=== PATIENT | female | born 1985 | race Caucasian/White ===

== ENCOUNTER 2017-04-29 11:40 | Emergency (ER) | payer SELFPAY ==
[2017-04-29] MEDS ORDERED: Sodium Chloride 0.9% 1,000 ML PRIMARY IV ONE ×3 (12:05→14:51)
[2017-04-29] MEDS ORDERED: NORMAL SALINE 10 ML SYRINGE FLUSH IVP PRN ×2 (12:05→14:51)
--- NOTE | 2017-04-29 12:05 | PDOC ---
Gen Adult / Medical Screen HPI - General Chief Complaint: General Medical Stated Complaint: body pains Date Seen by Provider: 04/29/17 Time Seen by Provider: 12:04 Source: POSITIVE: Patient - History of Present Illness Initial Comments: Ms. Bah is a 31-year-old woman coming to us today with a sickle cell pain crisis. She is from out of town traveling on her way back home from [place]. She normally lives at a lower altitude, which is likely a contributing factor. She started having pain typical of her normal sickle cell pain in her arms and legs yesterday. She is compliant with her home Percocet home Dilaudid and home hydroxyurea. She denies any fevers, shortness of breath, cough, headache, or neck stiffness. She has no nausea no vomiting. She has noticed that she has mild increasing bruising, which she states is typical for her when she has her sickle pain crises. She has had acute chest before, and states that this does not feel like that to her. - Patient Home Medications Home Medications: Home Medications Hydromorphone HCl [Dilaudid] 4 mg PO PRN PRN 04/29/17 Hydroxyurea 500 mg PO DAILY 04/29/17 oxyCODONE/APAP 10/325 Tab [Percocet 10/325 Tab] 1 each PO Q4H 04/29/17 - Patient Allergies Allergies/Adverse Reactions: Allergies Allergy/AdvReac Type Severity Reaction Status Date / Time No Known Allergies Allergy Verified 04/29/17 12:05 Past Medical History - heen HEENT History: Denies History Cardiovascular History: Denies History Respiratory History: Denies History Gastrointestinal History: Denies History Genitourinary History: Denies History Endocrine History: Denies History Musculoskeletal History: Denies History Neurological History: Denies History Blood Disorders: Sickle Cell Anemia Psychiatric History: Denies History Past Medical History Reviewed: Reviewed - No Changes ROS - Limitations ROS Limitations: No Limitations Constitution: REPORTS: Denies Symptoms Cardiovascular: REPORTS: Denies Cardiac Symptoms Respiratory: REPORTS: Denies Resp Symptoms Neurological: REPORTS: Denies Neuro Symptoms Gastrointestinal: REPORTS: Denies GI Symptoms Endocrine: REPORTS: Fatigue Musculoskeletal: REPORTS: Joint Pain, Muscle Aches Genitourinary: REPORTS: Denies Symptoms Eyes: REPORTS: Denies Symptoms ENT: REPORTS: Denies Symptoms Skin: REPORTS: Denies Skin Symptoms Lympathic: REPORTS: Excessive Bruising Psychiatric: POSITIVE: Denies Psych Symptoms Gen Adult/Medical Screen Exam - General Appearance General Appearance: POSITIVE: Alert, Cooperative, No Acute Distress, No Evidence of Trauma - HEENT HEENT: POSITIVE: Head Inspection Nml, Eyes Inspection Nml, Ears Inspection Nml, Nose Inspection Nml, Oral/Dental Inspect. Nml, Pharynx Inspect. Nml, PERRL, EOMI - Pupils Pupil Size: 2 mm: Bilateral - Neck Neck: POSITIVE: Normal Inspection - Respiratory Respiratory: POSITIVE: No Respiratory Distress, Breath Sounds Normal - Cardiovascular Cardiovascular: POSITIVE: Regular Rate & Rhythm Peripheral Pulses: Radial (R): 2+, Radial (L): 2+ - Abdomen Abdomen: Soft: (All Quadrants), Normal Bowel Sounds: (All Quadrants), Denies Tenderness: (All Quadrants), No Splenomegaly: (All Quadrants) - Neurological / Psychological Mental Status: POSITIVE: Mood Normal, Affect Normal Orientation: POSITIVE: Oriented x 3 - Skin Skin: POSITIVE: Normal Color, No Rash - Extremities Extremity: Non-Tender: (All Extremities), Normal ROM: (All Extremities), Normal Inspection: (All Extremities) Gen Adlt/Medical Scrn Progress - Results Reviewed by me Lab Results Reviewed: Yes (normal WBC and reticulocytes) Lab Results:: Laboratory Results 04/29/17 Range/Units 12:36 WBC 5.95 (4.8-10.8) 10^3/uL RBC 4.54 (4.20-5.40) 10^6/uL Hgb 10.0 L (12.0-16.0) g/dL Hct 32.3 L (37.0-47.0) % MCV 71.1 L (81-99) FL MCH 22.0 L (27-31) PG MCHC 31.0 L (33-37) g/dL RDW Std Deviation 55.0 H (39-50) fL RDW Coeff of Tanisha 21.6 H (11.5-14.5) % Plt Count 389 H (140-350) 10*3/uL MPV 8.7 (7.4-12.2) FL Immature Gran % (Auto) 0.2 (0-5) % Neut % (Auto) 58.0 (50-80) % Lymph % (Auto) 29.7 (10-50) % [place] % (Auto) 9.9 (5-15) % Eos % (Auto) 1.5 (0-8) % Baso % (Auto) 0.7 (0-1) % Immature Gran # (Auto) 0.01 10*3/UL Neut # (Auto) 3.45 10*3/UL Lymph # (Auto) 1.77 10*3/uL [place] # (Auto) 0.59 (0.3-0.8) 10*3/UL Eos # (Auto) 0.09 10*3/UL Baso # (Auto) 0.04 10*3/UL WBC Morphology Comment Normal morphology (NORM) Plt Morphology Comment Normal morphology (NORM) RBC Morph Comment Normal morphology (NORM) Retic Count 0.0624 (0.0380-0.1130) 10(6)/uL Percent Retic 1.39 (0.77-2.36) % Sodium 139 (135-145) meq/L Potassium 3.9 (3.8-5.2) meq/L Chloride 108 (98-112) meq/L Carbon Dioxide 22 L (23-33) meq/L Anion Gap 9 (5-20) BUN 11 (7-22) mg/dL Creatinine 0.6 (0.50-1.20) mg/dL Estimated GFR > 60 (>60 ml/min/1.73m(2)) BUN/Creatinine Ratio 18.33 (6-20) Glucose 99 (78-110) mg/dL Calculated Osmolality 286.0 (267-292) mOsm/kg Calcium 8.1 L (8.7-10.7) mg/dL Total Bilirubin 0.2 L (0.3-1.2) mg/dL AST 15 (8-39) IU/L ALT 27 (9-52) IU/L Alkaline Phosphatase 50 (38-126) IU/L Total Protein 6.9 (6.1-8.0) g/dL Albumin 3.8 (3.5-4.8) g/dL Globulin 3.1 (2.50-4.10) g/dL Albumin/Globulin Ratio 1.20 L (1.3-2.0) mg/g Serum HCG, Qual Negative - Patient's Progress MDM / ED Course: Ms. gomez is a 31-year-old woman coming in today with an acute sickle cell pain crisis. She has no evidence of acute chest, she has no fevers and blood work is reassuring. We gave her 3 rounds of IV pain medicine 2 mg Dilaudid followed by 4 mg followed by 4 mg. After each pain medication and menstruation she was reassessed and her pain slowly improved. She also got a liter of saline with each Dilaudid bolus as well as an initial 50 mg dose of IV Benadryl. She was able to eat both solid and liquid food with no problem and her pain was controlled at the end of this encounter and she states that she could control her symptoms with oral medicines going forward. He recommended that she return back home to [place] and follow up with her primary providers there. She verbalized understanding Patient Care Time - Estimated PCT Patient Care Time (In Minutes): 30 Vital Signs - Recent Vital Signs Vital Signs: Vital Signs (Last 8 hours) Temp Pulse Pulse Resp BP Pulse Ox 04/29/17 15:49 62 12 116/67 98 04/29/17 15:25 66 12 109/66 100 04/29/17 15:03 82 16 04/29/17 13:30 66 12 139/101 97 04/29/17 11:50 97.3 F 69 14 121/83 98 - VS Reviewed Vital Signs Reviewed: Yes Discharge Clinical Impression: Sickle cell anemia with crisis Discharge Disposition: Discharged to Home Condition: Fair Patient Instructions Given at Discharge: Sickle Cell Crisis (ED)
[2017-04-29] MEDS ORDERED: HYDROmorphone 2 MG/1 ML IVP ONE ×3 (12:06→14:49)
[2017-04-29] MEDS ORDERED: Sodium Chloride 0.9% 1,000 ML ONE (12:17)
[2017-04-29] MEDS ORDERED: HYDROmorphone 2 MG/1 ML ONE (12:17)
[2017-04-29] MEDS ORDERED: diphenhydrAMINE 50 MG/1 ML VIAL IVP ONE (12:30)
[2017-04-29 12:42] LABS: BASOPHILS # (AUTO) 0.04 10*3/UL; BASOPHILS % (AUTO) 0.7 % (0-1); EOSINOPHILS # (AUTO) 0.09 10*3/UL; EOSINOPHILS % (AUTO) 1.5 % (0-8); HEMATOCRIT 32.3 % (37.0-47.0); LYMPHOCYTES # (AUTO) 1.77 10*3/uL; MEAN CORPUSCULAR VOLUME 71.1 FL (81-99); MEAN PLATELET VOLUME 8.7 FL (7.4-12.2); MONOCYTES # (AUTO) 0.59 10*3/UL (0.3-0.8); MONOCYTES % (AUTO) 9.9 % (5-15); NEUTROPHILS # (AUTO) 3.45 10*3/UL; RED BLOOD COUNT 4.54 10^6/uL (4.20-5.40)
[2017-04-29 12:44] LABS: PLATELET MORPHOLOGY COMMENT NORMAL MORPHOLOGY (NORM); RBC MORPHOLOGY COMMENT NORMAL MORPHOLOGY (NORM); WBC MORPHOLOGY COMMENT NORMAL MORPHOLOGY (NORM)
[2017-04-29 12:50] LABS: BLOOD UREA NITROGEN 11 mg/dL (7-22); BUN/CREATININE RATIO 18.33 (6-20); CALCIUM 8.1 mg/dL (8.7-10.7); EST GLOMERULAR FILTRATION > 60 (>60 ml/min/1.73m(2)); SERUM ALBUMIN 3.8 g/dL (3.5-4.8)
[2017-04-29 13:25] VITALS: TEMP 97.3
[2017-04-29 15:36] VITALS: RESP 12
== END 2017-04-29 17:15 | disposition home or self-care (01) ==
LOC: ER 11:40
DX: D57.00 Hb-SS disease with crisis, unspecified (principal); M79.602 Pain in left arm; M79.601 Pain in right arm; M79.605 Pain in left leg; M79.604 Pain in right leg
CPT/HCPCS: 36415; 80053; 84703; 85025; 85045; 96361; 96374; 96375; 96376; 99283 ×2; J1200; J1170; J7030

== ENCOUNTER 2017-04-30 15:50 | Observation (INO) | payer SELFPAY ==
[2017-04-30] MEDS ORDERED: Sodium Chloride 0.9% 1,000 ML PRIMARY IV ONE ×2 (16:32→18:25)
[2017-04-30] MEDS ORDERED: NORMAL SALINE 10 ML SYRINGE FLUSH IVP PRN (16:32)
[2017-04-30] MEDS ORDERED: HYDROmorphone 2 MG/1 ML IVP ONE (16:36)
[2017-04-30 16:42] LABS: HEMATOCRIT 32.3 % (37.0-47.0); HEMOGLOBIN 10.4 g/dL (12.0-16.0); MEAN CORPUSCULAR HEMOGLOBIN 22.5 PG (27-31); MEAN CORPUSCULAR HGB CONC 32.2 g/dL (33-37); MEAN CORPUSCULAR VOLUME 69.9 FL (81-99); MEAN PLATELET VOLUME 8.7 FL (7.4-12.2); RED BLOOD COUNT 4.62 10^6/uL (4.20-5.40)
[2017-04-30 16:54] LABS: BLOOD UREA NITROGEN 6 mg/dL (7-22); C-REACTIVE PROTEIN 1.8 mg/dL (0.0-0.9); CALCIUM 8.2 mg/dL (8.7-10.7); EST GLOMERULAR FILTRATION > 60 (>60 ml/min/1.73m(2)); SERUM ALBUMIN 3.5 g/dL (3.5-4.8)
[2017-04-30 17:06] LABS: PLATELET MORPHOLOGY COMMENT NORMAL MORPHOLOGY (NORM); RBC MORPHOLOGY COMMENT NORMAL MORPHOLOGY (NORM); WBC MORPHOLOGY COMMENT NORMAL MORPHOLOGY (NORM)
[2017-04-30 17:07] LABS: BAND NEUTROPHILS % 0 % (0-10); BASOPHILS % (MANUAL) 1 % (0-1); EOSINOPHILS % (MANUAL) 1 % (0-8); LYMPHOCYTES % (MANUAL) 38 % (10-50); METAMYELOCYTES % 0 %; MONOCYTES % (MANUAL) 4 % (0-12); MYELOCYTES % 0 %; NEUTROPHILS % (MANUAL) 56 % (50-80); PROMYELOCYTES % 0 %
[2017-04-30] MEDS ORDERED: diphenhydrAMINE 50 MG/1 ML VIAL IVP ONE (17:14)
--- NOTE | 2017-04-30 17:43 | DI ---
PA /LATERAL CHEST X-RAY, 04/30/2017 4:32 PM : Clinical History: Sickle cell anemia. Sickle cell pain crisis. Previous Exam: None at this facility. There is no acute soft tissue or bony abnormality. Heart size is normal. Lungs are clear. Mediastinal structures are normal. There are no pulmonary nodules. Reading: Normal chest x-ray.
[2017-04-30] MEDS ORDERED: HYDROmorphone 2 MG/1 ML IVP PRN ×3 (18:20→20:40)
[2017-04-30] MEDS ORDERED: LIDOCAINE W/ SODIUM BICARB 0.5 ML SYR SUBD PRN (18:25)
[2017-04-30] MEDS: diphenhydrAMINE 50 MG/1 ML VIAL IVP PRN (20:20)
[2017-04-30] MEDS: HYDROmorphone 2 MG/1 ML IVP PRN ×2 (20:46→23:13)
[2017-04-30] MEDS ORDERED: ENOXAPARIN SODIUM 40 MG/0.4 ML SYRINGE SUBCUT ONE (21:39)
--- NOTE | 2017-04-30 21:40 | PDOC ---
History and Physical - History of Present Illness History of Present Illness: Is a very nice 31-year-old female with past medical history significant for sickle cell disease. Was seen and the ER yesterday with sickle cell pain crisis. She resides in [place] but was in [place] for a family reunion and headed home. Most likely the altitude is contributing to her crisis she received the IV fluids in the dialogue did in the ER was better discharged today comes back with increased sickle cell pain and was admitted for pain control. Usually these crisis last 3-4 days she usually uses dye lauded every 2 hours plus Benadryl and IV fluids she has been dealing with this since . Denies chest pain nausea or vomiting and feels a little bit better tonight Past Medical History Medical History: Sickle cell crisis Tobacco Use: Former Smoker Do you dip or chew tobacco: No Substance Use Type: None Medication / Allergies Home Medications: Home Medications Medication Instructions Recorded Confirmed Type Hydromorphone HCl [Dilaudid] 4 mg PO PRN PRN 04/29/17 04/30/17 History Hydroxyurea 500 mg PO DAILY 04/29/17 04/30/17 History oxyCODONE/APAP 10/325 Tab 1 each PO Q4H 04/29/17 04/30/17 History [Percocet 10/325 Tab] Allergies/Adverse Reactions: Allergies Allergy/AdvReac Type Severity Reaction Status Date / Time No Known Allergies Allergy Verified 04/30/17 16:11 Review of Systems - Respiratory Respiratory: DENIES: Negative System Review, Cough, Sputum, Dyspnea At Rest, Dyspnea with Exertion, Pleuritic Pain, Hemoptysis, Wheezing, Other, See HPI - Cardiovascular Cardiovascular: DENIES: Negative System Review, Chest Pain, Edema, Syncope, Palpitations, Orthopnea, Paroxysmal Nocturnal Dyspnea, Other, See HPI Exam - Vitals Vital Signs: Vital Signs Temperature 97.2 F Temperature Source Temporal Artery Scan Pulse Rate [Pulse Oximeter 61 Left] Respiratory Rate 22 Blood Pressure [Right Arm] 133/58 Pulse Ox 99 Oxygen Flow Rate 2 Oxygen Delivery Method Nasal Cannula Height 5 ft 5 in Weight 146.147 kg - General General Appearance: POSITIVE: No Acute Distress, Cooperative - Head Head Exam: POSITIVE: Normal Inspection, Normocephalic, Atraumatic - Respiratory Respiratory Exam: POSITIVE: Clear to Auscultation - Bilaterally, Breathing Non Labored, Normal To Percussion, Normal to Percussion and Palpation - Cardiovascular Cardiovascular Exam: POSITIVE: RRR, No Murmur, No Clicks, No Gallops - GI/Abdominal GI/Abdominal Exam: POSITIVE: Non Tender, Non Distended, Soft - Extremities Extremities Exam: POSITIVE: No Clubbing Present, No Edema Present Results - Labs CBC and BMP: 04/30/17 16:30 04/30/17 16:30 Assessment and Plan - Patient Problems (1) Sickle cell anemia with crisis Current Visit: No Status: Acute Comment: IV fluids, with 20 of K dye lauded 4 mg every 2 hours as IV Benadryl this seems to help her quite a bit she is comfortable at present time (2) Hypokalemia Current Visit: Yes Status: Acute Comment: Replace with fluids
--- NOTE | 2017-04-30 22:20 | PDOC ---
General Adult HPI - General Chief Complaint: General Medical Stated Complaint: body pain Date Seen by Provider: 04/30/17 Time Seen by Provider: 15:08 Source: POSITIVE: Patient, Old records Exam Limitations: POSITIVE: No limitations Nurse's Notes Reviewed & Considered: Yes - History of Present Illness Initial Comment: The patient is a 31-year-old female. She states that she lives in [place] and is returning from [place] to her home in [place]. She states she has a history of sickle cell anemia and has episodes of "acute painful episodes "due to her sickle cell disease. She states that this condition is managed by pain specialist in [place] and that she takes Dilaudid and Percocet on a as necessary basis. Patient states she was diagnosed with sickle cell disease at age 5. She states that she gets fairly frequent episodes of acute pain and has to be hospitalized periodically. Patient states that she has undergone a "partial splenectomy ". Patient denies any fevers or chills. No chest pain or dyspnea. No GI or symptoms. She states that she does have some pain to the left lower leg over the left calf. 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 Patient states that she has required blood transfusions in the past, most recently this past October. She was seen in the emergency room yesterday with pain mainly to her extremities and back and she was treated with IV hydration and narcotic analgesia. She returns today complaining of no relief. Have you received a tetanus shot in the past 10 years?: No Body Location Affected: REPORTS: Upper Extremity (L), Upper Extremity (R), Lower Extremity (L), Lower Extremity (R), Back Timing: REPORTS: Constant, Gradual Duration: >24 hours (Approximately 36 hours) Severity: Moderate Quality: REPORTS: Aching, "Pain" Context: REPORTS: Other (As above) Modifying Factors: improves with: Nothing Similar Symptoms Previously: Yes (as above) Recent Care Received: REPORTS: Recently Seen, Treated by MD (Seen and treated in ER yesterday; see ER notes from that visit.) Any Prior Injuries Related to Current Complaint?: No - Patient Home Medications Home Medications: Home Medications Hydromorphone HCl [Dilaudid] 4 mg PO PRN PRN 04/29/17 Hydroxyurea 500 mg PO DAILY 04/29/17 oxyCODONE/APAP 10/325 Tab [Percocet 10/325 Tab] 1 each PO Q4H 04/29/17 - Patient Allergies Allergies/Adverse Reactions: Allergies Allergy/AdvReac Type Severity Reaction Status Date / Time No Known Allergies Allergy Verified 04/30/17 16:11 Past Medical History - heen HEENT History: Denies History Cardiovascular History: Denies History Respiratory History: Denies History Gastrointestinal History: Denies History Genitourinary History: Denies History Additional Genitourinary History: spleen surgery with part. removal. 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, dnc Psychiatric History: Denies History History of Sexually Transmitted Diseases: No Female Reproductive History: Hysterectomy LMP: none- normal for pt Cancer History: Denies History In Past Year Been Physically Harmed or Verbally Threatened: No History of MDRO: No History of Other Communicable Diseases: No Tobacco Use: Former Smoker Alcohol Use: None Substance Use Type: None Previous Surgical History: Yes Type / Date of Surgery: spleen, hysterectomy Anesthesia Reactions: No Malignant Hyperthermia: No Family History of Malignant Hyperthermia: No Significant Family History: No pertinent family hx Past Medical History Reviewed: Reviewed - No Changes ROS - Limitations ROS Limitations: No Limitations Constitution: REPORTS: Other (Myalgia) Cardiovascular: REPORTS: Denies Cardiac Symptoms Respiratory: REPORTS: Denies Resp Symptoms Neurological: REPORTS: Denies Neuro Symptoms Gastrointestinal: REPORTS: Denies GI Symptoms Endocrine: REPORTS: Denies Symptoms Musculoskeletal: REPORTS: Back Pain, Muscle Aches Genitourinary: REPORTS: Denies Symptoms Eyes: REPORTS: Denies Symptoms ENT: REPORTS: Denies Symptoms Skin: REPORTS: Denies Skin Symptoms Lympathic: REPORTS: Denies Lympathic Symptoms Immunologic: POSITIVE: Denies Symptoms Psychiatric: POSITIVE: Denies Psych Symptoms General Adult Exam - General Appearance General Appearance: POSITIVE: Alert, Cooperative, No Acute Distress, No Evidence of Trauma - HEENT HEENT: POSITIVE: Head Inspection Nml, Eyes Inspection Nml, Ears Inspection Nml, Nose Inspection Nml, Oral/Dental Inspect. Nml, Pharynx Inspect. Nml, PERRL, EOMI - Pupils Pupil Size: 3 mm: Bilateral (PERRLA) - Neck Neck: POSITIVE: Normal Inspection, Thyroid Normal - Respiratory Respiratory: POSITIVE: No Respiratory Distress, Breath Sounds Normal, Chest Non- Tender - Cardiovascular Cardiovascular: POSITIVE: Regular Rate & Rhythm, No Murmur, No Gallop, PMI Normal Peripheral Pulses: Radial (R): 2+, Radial (L): 2+, Dorsalis-pedis (R): 2+, Dorsalis-pedis (L): 2+ - Abdomen Abdomen: Soft: (All Quadrants), Normal Bowel Sounds: (All Quadrants), Denies Tenderness: (All Quadrants), No Splenomegaly: (All Quadrants), No Hepatomegaly: (All Quadrants), No Guarding: (All Quadrants), No Rebound: (All Quadrants), No Palpable Pulse: (All Quadrants), No Palpabale Mass: (All Quadrants), No Distention: (All Quadrants), No Rigidity: (All Quadrants) - Back Back: POSITIVE: Normal Inspection - Skin Skin: POSITIVE: Normal Color, Warm, Dry, No Rash - Extremities Extremity: Non-Tender: (RUE), (LUE), (RLE), Normal ROM: (All Extremities), Normal Inspection: (All Extremities), Pelvis Stable: (All Extremities), Normal Tendon Exam: (All Extremities), Edema / Swelling: (LLE) Additional Extremities Details: Examination of extremities shows no joint effusion or swelling. No rubor or calor. She does express some mild discomfort on firm compression and palpation over the proximal aspect of the left lower leg. - Neurological / Psychological Neurological: POSITIVE: Oriented X3, joint yarner Normal As Tested, Motor Normal, Sensation Normal, 5, 6 General Adult Progress - Results Reviewed by me Xrays/CTs/US Reviewed by me: Yes Discussed with Radiologist: No Radiology Findings: Chest x-ray normal Lab Results Reviewed: Yes (hemoglobin 10.4; yesterday hemoglobin was 10.0) Lab Results:: Laboratory Results 04/30/17 Range/Units 16:30 WBC 4.76 L (4.8-10.8) 10^3/uL RBC 4.62 (4.20-5.40) 10^6/uL Hgb 10.4 L (12.0-16.0) g/dL Hct 32.3 L (37.0-47.0) % MCV 69.9 L (81-99) FL MCH 22.5 L (27-31) PG MCHC 32.2 L (33-37) g/dL RDW Std Deviation 52.9 H (39-50) fL RDW Coeff of Tanisha 21.2 H (11.5-14.5) % Plt Count 393 H (140-350) 10*3/uL MPV 8.7 (7.4-12.2) FL Neutrophils % (Manual) 56 (50-80) % Band Neutrophils % 0 (0-10) % Lymphocytes % (Manual) 38 (10-50) % Monocytes % (Manual) 4 (0-12) % Eosinophils % (Manual) 1 (0-8) % Basophils % (Manual) 1 (0-1) % Metamyelocytes % 0 % Myelocytes % 0 % Promyelocytes % 0 % Blast Cells 0 (0-1) % WBC Morphology Comment Normal morphology (NORM) Plt Morphology Comment Normal morphology (NORM) RBC Morph Comment Normal morphology (NORM) PT 11.0 (9.7-11.4) secs INR 1.07 (0.00-5.90) N/A D-Dimer 0.57 (0.00-0.59) mg/L Sodium 137 (135-145) meq/L Potassium 3.3 L (3.8-5.2) meq/L Chloride 107 (98-112) meq/L Carbon Dioxide 20 L (23-33) meq/L Anion Gap 10 (5-20) BUN 6 L (7-22) mg/dL Creatinine 0.6 (0.50-1.20) mg/dL Estimated GFR > 60 (>60 ml/min/1.73m(2)) BUN/Creatinine Ratio 10.00 (6-20) Glucose 131 H (78-110) mg/dL Calculated Osmolality 283.0 (267-292) mOsm/kg Calcium 8.2 L (8.7-10.7) mg/dL Total Bilirubin 0.3 (0.3-1.2) mg/dL AST 14 (8-39) IU/L ALT 26 (9-52) IU/L Alkaline Phosphatase 41 (38-126) IU/L Total Creatine Kinase 36 (30-136) IU/L C-Reactive Protein 1.8 H (0.0-0.9) mg/dL Total Protein 6.7 (6.1-8.0) g/dL Albumin 3.5 (3.5-4.8) g/dL Globulin 3.2 (2.50-4.10) g/dL Albumin/Globulin Ratio 1.00 L (1.3-2.0) mg/g - Patient's Progress Pain Medication Addressed: POSITIVE: Yes (Dilaudid, 2 mg IV given) School/Work Release Addressed: POSITIVE: Not Applicable Re-Examine Time: 17:45 Re-Examine Comment: Condition unchanged Status: POSITIVE: Unchanged, Re-Examined Antibiotics Given: No - Consult Consult (If Yes, Name of Consulting MD & Time Called): Yes (Dr. Rangel, hospitalist, [id number]) Consulting MD will see pt:: POSITIVE: [facility] [place] Counseled: POSITIVE: Patient, RE: Lab Results, RE: Radiology Results, RE: DX, RE : Need for F/U Patient Care Time - Estimated PCT Patient Care Time (In Minutes): 60 Vital Signs - Recent Vital Signs Vital Signs: Vital Signs (Last 8 hours) Temp Pulse Resp BP Pulse Ox 04/30/17 18:43 97.2 F 61 22 133/58 99 04/30/17 17:37 68 14 127/66 2 04/30/17 15:50 96.2 F L 98 14 150/90 98 - VS Reviewed Vital Signs Reviewed: Yes Discharge Clinical Impression: Sickle cell disease Discharge Disposition: Admit to Inpatient Condition: Fair Date Decision to Admit to Inpatient: 04/30/17 Time Decision to Admit to Inpatient: 17:30
[2017-05-01] MEDS: HYDROmorphone 2 MG/1 ML IVP PRN ×7 (01:16→18:25)
[2017-05-01 04:08] LABS: HEMOGLOBIN 9.8 g/dL (12.0-16.0)
[2017-05-01 04:10] LABS: HEMATOCRIT 30.3 % (37.0-47.0); MEAN CORPUSCULAR HEMOGLOBIN 23.1 PG (27-31); MEAN CORPUSCULAR HGB CONC 32.3 g/dL (33-37); MEAN CORPUSCULAR VOLUME 71.3 FL (81-99); MEAN PLATELET VOLUME 8.8 FL (7.4-12.2); RED BLOOD COUNT 4.25 10^6/uL (4.20-5.40)
[2017-05-01 04:28] LABS: BLOOD UREA NITROGEN 7 mg/dL (7-22); BUN/CREATININE RATIO 11.66 (6-20); CALCIUM 7.8 mg/dL (8.7-10.7); EST GLOMERULAR FILTRATION > 60 (>60 ml/min/1.73m(2)); SERUM ALBUMIN 3.2 g/dL (3.5-4.8)
[2017-05-01 04:51] LABS: BAND NEUTROPHILS % 0 % (0-10); BASOPHILS % (MANUAL) 0 % (0-1); EOSINOPHILS % (MANUAL) 0 % (0-8); LYMPHOCYTES % (MANUAL) 47 % (10-50); MONOCYTES % (MANUAL) 8 % (0-12); NEUTROPHILS % (MANUAL) 45 % (50-80); PLATELET MORPHOLOGY COMMENT NORMAL MORPHOLOGY (NORM); RBC MORPHOLOGY COMMENT SEE COMMENTS (NORM); WBC MORPHOLOGY COMMENT NORMAL MORPHOLOGY (NORM)
[2017-05-01] MEDS: ENOXAPARIN SODIUM 40 MG/0.4 ML SYRINGE SUBCUT SCH (08:02)
[2017-05-01] MEDS: HYDROXYUREA 500 MG PO SCH (08:21)
[2017-05-01] MEDS: CALCIUM CARBONATE 500 MG (TUMS) CHEWABLE TABLET PO PRN ×2 (08:51→20:14)
[2017-05-01] MEDS: ONDANSETRON 4 MG/2 ML VIAL IVP PRN (08:51)
[2017-05-01] MEDS: diphenhydrAMINE 50 MG/1 ML VIAL IVP PRN ×2 (10:00→19:04)
--- NOTE | 2017-05-01 11:36 | PDOC(PROG) ---
Interval History: Patient states she is definitely better than when she came in still has some throbbing pain in the arms and legs but not as much in the chest. Feels constipated the she is eating prunes and taking prune juice. Does not feel ready yet to be discharged I told her she is about [address] from being a lower altitude. Not quite ready yet to drive she states she would like to get her pain under better control where she can manage it with her on pain meds. Objective : Data - Labs CBC and BMP: 05/01/17 04:00 05/01/17 04:00 Labs - Last 24 Hours: Laboratory Results 05/01/17 Range/Units 04:00 WBC 5.00 (4.8-10.8) 10^3/uL RBC 4.25 (4.20-5.40) 10^6/uL Hgb 9.8 L (12.0-16.0) g/dL Hct 30.3 L (37.0-47.0) % MCV 71.3 L (81-99) FL MCH 23.1 L (27-31) PG MCHC 32.3 L (33-37) g/dL RDW Std Deviation 53.1 H (39-50) fL RDW Coeff of Tanisha 21.0 H (11.5-14.5) % Plt Count 357 H (140-350) 10*3/uL MPV 8.8 (7.4-12.2) FL Neutrophils % (Manual) 45 L (50-80) % Band Neutrophils % 0 (0-10) % Lymphocytes % (Manual) 47 (10-50) % Monocytes % (Manual) 8 (0-12) % Eosinophils % (Manual) 0 (0-8) % Basophils % (Manual) 0 (0-1) % Metamyelocytes % Not Reportable Myelocytes % Not Reportable Promyelocytes % Not Reportable Blast Cells Not Reportable WBC Morphology Comment Normal morphology (NORM) Plt Morphology Comment Normal morphology (NORM) RBC Morph Comment See comments (NORM) Sodium 138 (135-145) meq/L Potassium 4.0 (3.8-5.2) meq/L Chloride 108 (98-112) meq/L Carbon Dioxide 22 L (23-33) meq/L Anion Gap 8 (5-20) BUN 7 (7-22) mg/dL Creatinine 0.6 (0.50-1.20) mg/dL Estimated GFR > 60 (>60 ml/min/1.73m(2)) BUN/Creatinine Ratio 11.66 (6-20) Glucose 86 (78-110) mg/dL Calculated Osmolality 282.0 (267-292) mOsm/kg Calcium 7.8 L (8.7-10.7) mg/dL Total Bilirubin 0.2 L (0.3-1.2) mg/dL AST 12 (8-39) IU/L ALT 26 (9-52) IU/L Alkaline Phosphatase 39 (38-126) IU/L Total Protein 6.2 (6.1-8.0) g/dL Albumin 3.2 L (3.5-4.8) g/dL Globulin 3.0 (2.50-4.10) g/dL Albumin/Globulin Ratio 1.00 L (1.3-2.0) mg/g Objective : Exam - General General Appearance: Cooperative - Respiratory Respiratory Exam: Clear to Auscultation - Bilaterally, Breathing Non Labored, Normal To Percussion - Cardiovascular Cardiovascular Exam: RRR, No Murmur, No Clicks, No Gallops - GI/Abdominal GI/Abdominal Exam: Normal Bowel Sounds, Non Tender, Non Distended Assessment and Plan - Patient Problems (1) Sickle cell anemia with crisis Current Visit: No Status: Acute Comment: Sickle cell crisis improved some continue IV fluids and pain control she did sleep from 2-8 without requiring additional pain meds overall she is improved but states not ready to be discharged see HPI (2) Hypokalemia Current Visit: Yes Status: Acute Comment: Replaced
[2017-05-01] MEDS: Sodium Chloride 0.9% 1,000 ML IV SCH (12:12)
[2017-05-01] MEDS ORDERED: LACTULOSE 20 GM PACKET ONE (12:13)
[2017-05-01] MEDS: LACTULOSE 20 GM PACKET PO SCH (20:06)
[2017-05-02] MEDS: Sodium Chloride 0.9% 1,000 ML IV SCH ×2 (01:18→15:38)
[2017-05-02] MEDS: HYDROmorphone 2 MG/1 ML IVP PRN ×11 (01:19→23:15)
[2017-05-02] MEDS: ACETAMINOPHEN 325 MG TABLET PO PRN ×3 (01:27→14:49)
[2017-05-02 05:29] LABS: BASOPHILS # (AUTO) 0.02 10*3/UL; BASOPHILS % (AUTO) 0.5 % (0-1); EOSINOPHILS # (AUTO) 0.07 10*3/UL; EOSINOPHILS % (AUTO) 1.7 % (0-8); HEMATOCRIT 30.2 % (37.0-47.0); HEMOGLOBIN 9.3 g/dL (12.0-16.0); MEAN CORPUSCULAR HEMOGLOBIN 22.2 PG (27-31); MEAN CORPUSCULAR HGB CONC 30.8 g/dL (33-37); MEAN CORPUSCULAR VOLUME 72.2 FL (81-99); MEAN PLATELET VOLUME 9.2 FL (7.4-12.2); MONOCYTES # (AUTO) 0.33 10*3/UL (0.3-0.8); RED BLOOD COUNT 4.18 10^6/uL (4.20-5.40)
[2017-05-02 05:35] LABS: BLOOD UREA NITROGEN 7 mg/dL (7-22); CALCIUM 8.5 mg/dL (8.7-10.7); EST GLOMERULAR FILTRATION > 60 (>60 ml/min/1.73m(2)); SERUM ALBUMIN 3.3 g/dL (3.5-4.8)
[2017-05-02 05:44] LABS: PLATELET MORPHOLOGY COMMENT NORMAL MORPHOLOGY (NORM); RBC MORPHOLOGY COMMENT SEE COMMENTS (NORM); WBC MORPHOLOGY COMMENT NORMAL MORPHOLOGY (NORM)
[2017-05-02] MEDS: diphenhydrAMINE 50 MG/1 ML VIAL IVP PRN ×2 (06:46→18:58)
--- NOTE | 2017-05-02 08:21 | PDOC(PROG) ---
Interval History: Patient states that she is doing better not requiring her narcotics as much for her sickle cell pain crisis now just in her legs she states this is how usually progresses and it so it's way to resolution. Denies chest pain or shortness of breath she did have a DVT in the past in the left lower extremity very hard to tell this is a swollen she was told by the ER that she was going to get an ultrasound Objective : Data - Labs CBC and BMP: 05/02/17 04:45 05/02/17 04:45 Labs - Last 24 Hours: Laboratory Results 05/02/17 Range/Units 04:45 WBC 4.12 L (4.8-10.8) 10^3/uL RBC 4.18 L (4.20-5.40) 10^6/uL Hgb 9.3 L (12.0-16.0) g/dL Hct 30.2 L (37.0-47.0) % MCV 72.2 L (81-99) FL MCH 22.2 L (27-31) PG MCHC 30.8 L (33-37) g/dL RDW Std Deviation 53.6 H (39-50) fL RDW Coeff of Tanisha 21.0 H (11.5-14.5) % Plt Count 341 (140-350) 10*3/uL MPV 9.2 (7.4-12.2) FL Immature Gran % (Auto) 0 (0-5) % Neut % (Auto) 51.0 (50-80) % Lymph % (Auto) 38.8 (10-50) % [place] % (Auto) 8.0 (5-15) % Eos % (Auto) 1.7 (0-8) % Baso % (Auto) 0.5 (0-1) % Immature Gran # (Auto) 0 10*3/UL Neut # (Auto) 2.10 10*3/UL Lymph # (Auto) 1.60 10*3/uL [place] # (Auto) 0.33 (0.3-0.8) 10*3/UL Eos # (Auto) 0.07 10*3/UL Baso # (Auto) 0.02 10*3/UL WBC Morphology Comment Normal morphology (NORM) Plt Morphology Comment Normal morphology (NORM) RBC Morph Comment See comments (NORM) Sodium 138 (135-145) meq/L Potassium 4.1 (3.8-5.2) meq/L Chloride 105 (98-112) meq/L Carbon Dioxide 27 (23-33) meq/L Anion Gap 6 (5-20) BUN 7 (7-22) mg/dL Creatinine 0.7 (0.50-1.20) mg/dL Estimated GFR > 60 (>60 ml/min/1.73m(2)) BUN/Creatinine Ratio 10.00 (6-20) Glucose 90 (78-110) mg/dL Calculated Osmolality 283.0 (267-292) mOsm/kg Calcium 8.5 L (8.7-10.7) mg/dL Total Bilirubin 0.2 L (0.3-1.2) mg/dL AST 17 (8-39) IU/L ALT 31 (9-52) IU/L Alkaline Phosphatase 40 (38-126) IU/L Total Protein 6.3 (6.1-8.0) g/dL Albumin 3.3 L (3.5-4.8) g/dL Globulin 3.0 (2.50-4.10) g/dL Albumin/Globulin Ratio 1.10 L (1.3-2.0) mg/g Objective : Exam - General General Appearance: Cooperative - Neck Neck Exam: Normal Inspection, Full ROM, No Tenderness - Respiratory Respiratory Exam: Clear to Auscultation - Bilaterally, Breathing Non Labored, Normal To Percussion - Cardiovascular Cardiovascular Exam: RRR, No Murmur, No Clicks - GI/Abdominal GI/Abdominal Exam: Non Distended, Soft - Extremities Extremities Exam: No Clubbing Present Additional Extremities Exam Details: Maybe mildly more swollen maybe from previous DVT left lower extremity very hard to hard to differentiate both legs look pretty much the same - Neurological Neurological Exam: Alert, Oriented x 3, CN II-XII Intact, No Facial Droop, Speech Intact / Clear, Moves All Extremities Equally Assessment and Plan - Patient Problems (1) Sickle cell anemia with crisis Current Visit: No Status: Acute Comment: Continue IV fluids and pain control overall improving labs were reviewed within normal limits there are no glory in the differentials (2) Hypokalemia Current Visit: Yes Status: Acute Comment: Resolved (3) Left leg swelling Current Visit: Yes Status: Acute Comment: Very hard to differentiate from the right leg but considering her previous history of DVT we will do an ultrasound of her lower extremity patient has been on Lovenox 40 subcutaneous daily
[2017-05-02] MEDS: LACTULOSE 20 GM PACKET PO SCH ×2 (08:29→20:23)
[2017-05-02] MEDS: ENOXAPARIN SODIUM 40 MG/0.4 ML SYRINGE SUBCUT SCH (08:29)
[2017-05-02] MEDS: HYDROXYUREA 500 MG PO SCH (09:34)
[2017-05-02] MEDS ORDERED: BISACODYL 10 MG SUPPOSITORY RECTAL ONE (10:22)
[2017-05-02] MEDS: CALCIUM CARBONATE 500 MG (TUMS) CHEWABLE TABLET PO PRN (13:05)
[2017-05-02] MEDS ORDERED: FUROSEMIDE 10 MG/1 ML - 4 ML IVP ONE (16:43)
--- NOTE | 2017-05-02 17:10 | DI ---
HISTORY: Bilateral leg pain and swelling with elevated D-dimer. COMPARISON: None available. TECHNIQUE/FINDINGS: Sonographic images through the deep veins of the lower extremities demonstrate n ormal deep veins. There is no evidence of thrombus. There is complete coaptation upon graded compr ession. IMPRESSION: 1. No evidence of deep venous thrombosis.
[2017-05-02] MEDS: ONDANSETRON 4 MG/2 ML VIAL IVP PRN (18:25)
[2017-05-02] MEDS: NORMAL SALINE 10 ML SYRINGE FLUSH IVP PRN ×2 (18:26→18:54)
[2017-05-03] MEDS: ACETAMINOPHEN 325 MG TABLET PO PRN (03:57)
[2017-05-03] MEDS: NORMAL SALINE 10 ML SYRINGE FLUSH IVP PRN ×5 (03:58→16:09)
[2017-05-03] MEDS: HYDROmorphone 2 MG/1 ML IVP PRN ×5 (03:58→16:10)
[2017-05-03 04:47] LABS: BASOPHILS # (AUTO) 0.04 10*3/UL; BASOPHILS % (AUTO) 0.9 % (0-1); EOSINOPHILS # (AUTO) 0.07 10*3/UL; EOSINOPHILS % (AUTO) 1.6 % (0-8); HEMATOCRIT 32.7 % (37.0-47.0); HEMOGLOBIN 10.4 g/dL (12.0-16.0); LYMPHOCYTES # (AUTO) 1.39 10*3/uL; MEAN CORPUSCULAR HEMOGLOBIN 22.8 PG (27-31); MEAN CORPUSCULAR HGB CONC 31.8 g/dL (33-37); MEAN CORPUSCULAR VOLUME 71.7 FL (81-99); MONOCYTES # (AUTO) 0.31 10*3/UL (0.3-0.8); MONOCYTES % (AUTO) 7.3 % (5-15); NEUTROPHILS # (AUTO) 2.44 10*3/UL; NEUTROPHILS % (AUTO) 57.4 % (50-80); RED BLOOD COUNT 4.56 10^6/uL (4.20-5.40)
[2017-05-03 04:48] LABS: PLATELET MORPHOLOGY COMMENT NORMAL MORPHOLOGY (NORM); RBC MORPHOLOGY COMMENT NORMAL MORPHOLOGY (NORM); WBC MORPHOLOGY COMMENT NORMAL MORPHOLOGY (NORM)
[2017-05-03] MEDS: diphenhydrAMINE 50 MG/1 ML VIAL IVP PRN (07:38)
[2017-05-03] MEDS: ENOXAPARIN SODIUM 40 MG/0.4 ML SYRINGE SUBCUT SCH (09:33)
[2017-05-03] MEDS: LACTULOSE 20 GM PACKET PO SCH (10:10)
[2017-05-03] MEDS: HYDROXYUREA 500 MG PO SCH (10:11)
--- NOTE | 2017-05-03 10:59 | DCSUMMARY ---
Hospitalization Summary Admit Date: 04/30/17 Discharge Date: 05/03/17 Primary Diagnosis:: sickle cell disease Secondary Diagnosis:: Leg pain Hospital Course: This is a 31-year-old female that apparently was diagnosed with sickle cell anemia in 1990. She's had multiple episodes of sickle cell crisis and was admitted here on the seventh with complaints of pain, leg pain, and was admitted for IV Dilaudid and Benadryl. She gradually got better, although she still complains of leg pain today. She states that typically her sickle cell disease is managed with Dilaudid in the hospital and IV Benadryl. She is on Dilaudid and Percocet by mouth at home. She complains mostly of leg pain now. However, she denied chest pain or nausea or vomiting or abdominal pain on admission. She is now received over 45 mg of IV Dilaudid when I discussed with pharmacy today. The patient states that she has leg pain today, and is requesting that she have a weaning protocol of some type, however I think she is ready for by mouth medications at this time. She is also on hydroxyurea. Overall, she does not have anything consistent with an acute sickle cell crisis pain syndrome and I think she would benefit from getting out of the high elevation in [place]. I discussed this with the patient although she is quite adamant that she should stay here. Our discussion did not go overly well, and was quite circular in the patient requesting more pain medications, or at a minimum a weaning protocol of both IV and by mouth intolerance the by mouth medications were managing her pain. Her anemia is unchanged during the hospital stay. She has not had any fevers. She is not hypoxic. There are no sickle cell is on differential. Again overall, I think the safest thing for this patient is to resume her by mouth medications and get out of a high elevation at this time. She states that she lives in [place] and is on her way back and was passing through [place] at the time. The patient exhibited several different stories to the hospital stay is to her readiness towards discharge or her improvements and pain control and her story of how she ended up here in [place]. She told myself and my partner Dr. Gutiérrez' s, that she was passing through [place] on her way to [place], but stated to the nurses she was considering moving here. I discussed and told the patient that it would be a bad idea to stay here in [place] with the elevation. She puts herself at greater risk and higher elevation for acute sickle cell crisis with catastrophic abdominal symptoms. No completes of chest pain, shortness breath, nausea or vomiting, or abdominal pain. Notably ultrasound is negative for DVT. Assessment and Plan: 1. As per discharge assessments noted 2. Disposition: Patient is discharged home. 3. Condition on discharge, stable and improved. She may have chronic leg problems, may have avascular necrosis even, and this can be worked up as an outpatient with her primary care provider in [place]. 4. Diet: regular diet 5. Activities: resume normal activities 6. Follow-Up: 1. See your primary care physician within 7 days of discharge 2. 7. Medications at the Time of Discharge: Home Medications Medication Instructions Recorded Confirmed Type Hydromorphone HCl [Dilaudid] 4 mg PO PRN PRN 04/29/17 04/30/17 History Hydroxyurea 500 mg PO DAILY 04/29/17 04/30/17 History oxyCODONE/APAP 10/325 Tab 1 each PO Q4H 04/29/17 04/30/17 History [Percocet 10/325 Tab] Prescription 20 tablets of Dilaudid and 20 tablets of Percocet at the doses noted above every 4-6 hours as necessary. I've also given a prescription for hydroxyurea. 8. Time, care, counseling and coordination of care for this discharge is less than 30 minutes. Exam - Vitals Vital Signs: Vital Signs Temperature 98 F Temperature Source Temporal Artery Scan Pulse Rate [Apical] 64 Pulse Rate [Pulse Oximeter 89 Left] Respiratory Rate 18 Blood Pressure [Left Radial 112/66 Artery] Blood Pressure [Right Arm] 108/57 Pulse Ox 94 Oxygen Flow Rate 2 Oxygen Delivery Method Room Air Height 5 ft 5 in Weight 334 lb 12.8 oz - General General Appearance: POSITIVE: No Acute Distress - Eye Eye Exam: POSITIVE: No Scleral Icterus - Respiratory Respiratory Exam: POSITIVE: Clear to Auscultation - Bilaterally, Breathing Non Labored - Cardiovascular Cardiovascular Exam: POSITIVE: RRR, No Murmur, No Clicks, No Gallops, No Rubs, No JVD - GI/Abdominal GI/Abdominal Exam: POSITIVE: Normal Bowel Sounds, Non Tender, Non Distended, Soft - Extremities Extremities Exam: POSITIVE: No Clubbing Present, No Edema Present, No Cyanosis Present Data Perinent Studies: Laboratory Results 04/30/17 05/01/17 05/02/17 Range/Units 16:30 04:00 04:45 WBC 4.76 L 5.00 4.12 L (4.8-10.8) 10^3/uL RBC 4.62 4.25 4.18 L (4.20-5.40) 10^6/uL Hgb 10.4 L 9.8 L 9.3 L (12.0-16.0) g/dL Hct 32.3 L 30.3 L 30.2 L (37.0-47.0) % MCV 69.9 L 71.3 L 72.2 L (81-99) FL MCH 22.5 L 23.1 L 22.2 L (27-31) PG MCHC 32.2 L 32.3 L 30.8 L (33-37) g/dL RDW Std Deviation 52.9 H 53.1 H 53.6 H (39-50) fL RDW Coeff of Tanisha 21.2 H 21.0 H 21.0 H (11.5-14.5) % Plt Count 393 H 357 H 341 (140-350) 10*3/uL MPV 8.7 8.8 9.2 (7.4-12.2) FL Immature Gran % (Auto) 0 (0-5) % Neut % (Auto) 51.0 (50-80) % Lymph % (Auto) 38.8 (10-50) % [place] % (Auto) 8.0 (5-15) % Eos % (Auto) 1.7 (0-8) % Baso % (Auto) 0.5 (0-1) % Immature Gran # (Auto) 0 10*3/UL Neut # (Auto) 2.10 10*3/UL Lymph # (Auto) 1.60 10*3/uL [place] # (Auto) 0.33 (0.3-0.8) 10*3/UL Eos # (Auto) 0.07 10*3/UL Baso # (Auto) 0.02 10*3/UL Neutrophils % (Manual) 56 45 L (50-80) % Band Neutrophils % 0 0 (0-10) % Lymphocytes % (Manual) 38 47 (10-50) % Monocytes % (Manual) 4 8 (0-12) % Eosinophils % (Manual) 1 0 (0-8) % Basophils % (Manual) 1 0 (0-1) % Metamyelocytes % 0 Not Reportable % Myelocytes % 0 Not Reportable % Promyelocytes % 0 Not Reportable % Blast Cells 0 Not Reportable (0-1) % WBC Morphology Comment Normal morphology Normal morphology Normal morphology (NORM) Plt Morphology Comment Normal morphology Normal morphology Normal morphology (NORM) RBC Morph Comment Normal morphology See comments See comments (NORM) PT 11.0 (9.7-11.4) secs INR 1.07 (0.00-5.90) N/A D-Dimer 0.57 (0.00-0.59) mg/L Sodium 137 138 138 (135-145) meq/L Potassium 3.3 L 4.0 4.1 (3.8-5.2) meq/L Chloride 107 108 105 (98-112) meq/L Carbon Dioxide 20 L 22 L 27 (23-33) meq/L Anion Gap 10 8 6 (5-20) BUN 6 L 7 7 (7-22) mg/dL Creatinine 0.6 0.6 0.7 (0.50-1.20) mg/dL Estimated GFR > 60 > 60 > 60 (>60 ml/min/1.73m(2)) BUN/Creatinine Ratio 10.00 11.66 10.00 (6-20) Glucose 131 H 86 90 (78-110) mg/dL Calculated Osmolality 283.0 282.0 283.0 (267-292) mOsm/kg Calcium 8.2 L 7.8 L 8.5 L (8.7-10.7) mg/dL Total Bilirubin 0.3 0.2 L 0.2 L (0.3-1.2) mg/dL AST 14 12 17 (8-39) IU/L ALT 26 26 31 (9-52) IU/L Alkaline Phosphatase 41 39 40 (38-126) IU/L Total Creatine Kinase 36 (30-136) IU/L C-Reactive Protein 1.8 H (0.0-0.9) mg/dL Total Protein 6.7 6.2 6.3 (6.1-8.0) g/dL Albumin 3.5 3.2 L 3.3 L (3.5-4.8) g/dL Globulin 3.2 3.0 3.0 (2.50-4.10) g/dL Albumin/Globulin Ratio 1.00 L 1.00 L 1.10 L (1.3-2.0) mg/g /08/10 Range/Units 04:05 WBC 4.26 L (4.8-10.8) 10^3/uL RBC 4.56 (4.20-5.40) 10^6/uL Hgb 10.4 L (12.0-16.0) g/dL Hct 32.7 L (37.0-47.0) % MCV 71.7 L (81-99) FL MCH 22.8 L (27-31) PG MCHC 31.8 L (33-37) g/dL RDW Std Deviation 53.8 H (39-50) fL RDW Coeff of Tanisha 20.9 H (11.5-14.5) % Plt Count 340 (140-350) 10*3/uL MPV 9.0 (7.4-12.2) FL Immature Gran % (Auto) 0.2 (0-5) % Neut % (Auto) 57.4 (50-80) % Lymph % (Auto) 32.6 (10-50) % [place] % (Auto) 7.3 (5-15) % Eos % (Auto) 1.6 (0-8) % Baso % (Auto) 0.9 (0-1) % Immature Gran # (Auto) 0.01 10*3/UL Neut # (Auto) 2.44 10*3/UL Lymph # (Auto) 1.39 10*3/uL [place] # (Auto) 0.31 (0.3-0.8) 10*3/UL Eos # (Auto) 0.07 10*3/UL Baso # (Auto) 0.04 10*3/UL Neutrophils % (Manual) (50-80) % Band Neutrophils % (0-10) % Lymphocytes % (Manual) (10-50) % Monocytes % (Manual) (0-12) % Eosinophils % (Manual) (0-8) % Basophils % (Manual) (0-1) % Metamyelocytes % % Myelocytes % % Promyelocytes % % Blast Cells (0-1) % WBC Morphology Comment Normal morphology (NORM) Plt Morphology Comment Normal morphology (NORM) RBC Morph Comment Normal morphology (NORM) PT (9.7-11.4) secs INR (0.00-5.90) N/A D-Dimer (0.00-0.59) mg/L Sodium (135-145) meq/L Potassium (3.8-5.2) meq/L Chloride (98-112) meq/L Carbon Dioxide (23-33) meq/L Anion Gap (5-20) BUN (7-22) mg/dL Creatinine (0.50-1.20) mg/dL Estimated GFR (>60 ml/min/1.73m(2)) BUN/Creatinine Ratio (6-20) Glucose (78-110) mg/dL Calculated Osmolality (267-292) mOsm/kg Calcium (8.7-10.7) mg/dL Total Bilirubin (0.3-1.2) mg/dL AST (8-39) IU/L ALT (9-52) IU/L Alkaline Phosphatase (38-126) IU/L Total Creatine Kinase (30-136) IU/L C-Reactive Protein (0.0-0.9) mg/dL Total Protein (6.1-8.0) g/dL Albumin (3.5-4.8) g/dL Globulin (2.50-4.10) g/dL Albumin/Globulin Ratio (1.3-2.0) mg/g Patient Problems - Patient Problem List (1) Sickle cell anemia Current Visit: Yes Status: Chronic Comment: There does not appear to be an acute abdominal crisis, no complaints of chest pain, no oxygen requirements, and leg pain is difficult to tell whether this is acute or chronic. No evidence of DVT on admission. Qualifiers: Sickle-cell associated disorders: with unspecified crisis Qualified Description: Hb-SS disease with crisis Qualifier Code(s): (D57.00) Hb-SS disease with crisis, unspecified, (D57.0) Hb-SS disease with crisis (2) Hypokalemia Current Visit: Yes Status: Acute (3) Left leg swelling Current Visit: Yes Status: Acute
[2017-05-03] MEDS ORDERED: HYDROmorphone 2 MG TABLET PO PRN (11:34)
[2017-05-03] MEDS ORDERED: oxyCODONE/APAP 10/325 Tab 1 EACH TAB PO ONE (11:59)
[2017-05-03] MEDS: oxyCODONE/APAP 10/325 Tab 1 EACH TAB PO PRN ×2 (12:00→18:21)
[2017-05-03 16:19] VITALS: RESP 19; TEMP 97.7
== END 2017-05-03 18:36 | disposition home or self-care (01) ==
LOC: ER 15:50 → MED/SURG 18:13
PROVIDERS: ADMIT Internal Medicine; ATTEND Internal Medicine
DX: D57.1 Sickle-cell disease without crisis (principal); M79.605 Pain in left leg; M79.604 Pain in right leg; E87.6 Hypokalemia; M79.89 Other specified soft tissue disorders
CPT/HCPCS: 36415 ×3; 71020; 80053 ×3; 82550; 85007 ×2; 85025 ×2; 85379; 85610; 86140; 93970; 94150; 96361; 96374 ×3; 96375 ×4; 96376; 99284 ×2; J1200 ×4; J1650 ×4; J1940; J2405 ×2; J1170; J7030